=== PATIENT | female | born 1940 | race Caucasian/White ===

== ENCOUNTER 2018-01-01 01:35 | Emergency (ER) | payer MEDICARE, OTHER ==
[~2018-01-01] VITALS: Ht 154.9 cm; Wt 90.0 kg
[2018-01-01 01:47] VITALS: BP 110/58; PULSE 80; RESP 18; TEMP 97.4; O2SAT 100
[2018-01-01] MEDS ORDERED: FURO20TA PO (01:50)
[2018-01-01] MEDS ORDERED: APIX5TAB PO (01:50)
[2018-01-01] MEDS ORDERED: METO25TA3 PO (01:50)
--- NOTE | 2018-01-01 02:15 | PD ---
HPI . Head injury Chief Complaint: Fall Time Seen by Provider: 01:48 Travel History International Travel<30 days: No Contact w/Intl Traveler<30days: No Traveled to known affect area: No History of Present Illness HPI This patient presents to us by [facility] following a fall at home. She is here visiting from [place]. She she is on Eliquis for atrial fibrillation. There is no reported loss of consciousness. She did strike her head. She denies any other injuries. The injury occurred just prior to arrival. She reports no pain. An exacerbating factor was the use of alcohol tonight. PFS Past Medical History Atrial Fibrillation: Yes Congestive Heart Failure: Yes Hypertension: Yes Past Surgical History Abdominal Surgery: Yes (GASTRIC BYPASS) Cholecystectomy: Yes Hysterectomy: Yes Social History Alcohol Use: Yes (OCC) Tobacco Use: No Substance Use: No Allergies-Medications (Allergen,Severity, Reaction): Coded Allergies: codeine (Verified Allergy, Severe, Cramping, 01/01/18) Reported Meds & Prescriptions Reported Meds & Active Scripts Active Reported Metoprolol Tartrate 25 Mg Tab 25 Mg PO BID Furosemide 20 Mg Tab 20 Mg PO DAILY Eliquis (Apixaban) 5 Mg Tab 5 Mg PO BID Review of Systems Except as stated in HPI: all other systems reviewed are Neg Physical Exam Narrative GENERAL: Awake and alert and in no acute distress. SKIN: Warm and dry. HEAD: Normocephalic. She has a hematoma on the right forehead near the right eye. EYES: Pupils are equal. Extraocular movements are intact. NECK: Immobilized with cervical collar. MUSCULOSKELETAL: Atraumatic. NEUROLOGICAL: A and O 3. Cranial nerves are intact. No peripheral motor deficits noted. PSYCHIATRIC: Appropriate mood and affect. Data Data Last Documented VS Vital Signs Date Time Temp Pulse Resp B/P (MAP) Pulse Ox O2 Delivery O2 Flow Rate FiO2 01/01/18 01:47 97.4 80 18 110/58 (75) 100 Room Air Orders Orders Ct Brain W/O Iv Contrast(Rout) (01/01/18 01:56) Ct Cerv Spine W/O Contrast (01/01/18 01:56) Chest, Single Ap (01/01/18 ) Pelvis, Ap Only (Routine) (01/01/18 ) MDM Medical Decision Making Medical Screen Exam Complete: Yes Emergency Medical Condition: Yes Differential Diagnosis My differential diagnosis of head trauma includes but is not limited to scalp contusion, concussion, intracerebral hemorrhage. Narrative Course This patient presents to us following a fall at home with a blow to her head. She is on Eliquis. There was no loss of consciousness. She has no signs or symptoms of head injury at this time such as dizziness, blurred vision, nausea, altered mental status. CT C-spine>>Mild degenerative changes as described above. There is no evidence of acute fracture. CT head>>No evidence of acute intracranial pathology. No masses are identified. The patient will be discharged home. Diagnosis Primary Impression: Scalp contusion Qualified Codes: S00.03XA - Contusion of scalp, initial encounter Patient Instructions: General Instructions, Scalp Contusion in Adults (ED) Disposition: 01 DISCHARGE HOME Condition: Stable Renetta Ramos MD Jan 01, 2018 02:15
--- NOTE | 2018-01-01 03:13 | RADRPT ---
EXAM DATE/TIME: 01/01/2018 02:44 [facility] COMPARISON: No previous studies available for comparison. INDICATIONS : Trauma. Fall. Hematoma right forehead. RADIATION DOSE: 32.66 CTDIvol (mGy) MEDICAL HISTORY : Cardiovascular disease. Hypertension. SURGICAL HISTORY : CABG Cholecystectomy.Hysterectomy. ENCOUNTER: Initial ACUITY: 1 day PAIN SCALE: 0/10 LOCATION: neck TECHNIQUE: Multiple contiguous axial images were obtained of the head. Using automated exposure control and adj ustment of the mA and/or kV according to patient size, radiation dose was kept as low as reasonably a chievable to obtain optimal diagnostic quality images. DICOM format image data is available electro nically for review and comparison. FINDINGS: CEREBRUM: The ventricles are normal for age. No evidence of midline shift, mass lesion, hemorrhage or acute in farction. No extra-axial fluid collections are seen. POSTERIOR FOSSA: The cerebellum and brainstem are intact. The 4th ventricle is midline. The cerebellopontine angle i s unremarkable. EXTRACRANIAL: The visualized portion of the orbits is intact. SKULL: The calvaria is intact. No evidence of skull fracture. Scalp hematoma is present in the right fronta l region CONCLUSION: 1. No evidence of acute intracranial pathology. No masses are identified. Pérez Tapia MD on January 01, 2018 at 3:11 Board Certified Radiologist. This report was verified electronically.
--- NOTE | 2018-01-01 03:16 | RADRPT ---
EXAM DATE/TIME: 01/01/2018 02:44 [facility] COMPARISON: No previous studies available for comparison. INDICATIONS : Trauma. Fall. RADIATION DOSE: 17.89 CTDIvol (mGy) MEDICAL HISTORY : Cardiovascular disease. Hypertension. SURGICAL HISTORY : CABG Cholecystectomy.Hysterectomy. ENCOUNTER: Initial ACUITY: 1 day PAIN SCALE: 0/10 LOCATION: neck TECHNIQUE: Volumetric scanning of the cervical spine was performed. Multiplanar reconstructions in the sagittal, coronal and oblique axial planes were performed. Using automated exposure control and adjustment o f the mA and/or kV according to patient size, radiation dose was kept as low as reasonably achievable to obtain optimal diagnostic quality images. DICOM format image data is available electronically f or review and comparison. FINDINGS: Sagittal images demonstrate normal vertebral body alignment and curvature. The odontoid is intact. Th e occipital condyles and lateral masses of C1 are intact. Axial images were performed from C2-C3 to C7-T1. There is degenerative disc disease with disc space narrowing and marginal osteophyte formatio n at C5-C6. C2-C3: No significant abnormalities identified. C3-C4: No significant abnormalities identified. C4-C5: No significant abnormalities identified. C5-C6: There is osteophytic ridging along the posterior aspect of vertebral body. There is no significant sp inal canal stenosis. The neural foramina are clear bilaterally. C6-C7: There is no evidence of disc protrusion or spinal canal stenosis. There is moderate facet arthritis o n the left. The neural foramina are clear bilaterally. C7-T1: There is no evidence of disc protrusion or spinal canal stenosis. There is mild facet arthritis bilat erally. CONCLUSION: 1. Mild degenerative changes as described above. There is no evidence of acute fracture. Pérez Tapia MD on January 01, 2018 at 3:12 Board Certified Radiologist. This report was verified electronically.
--- NOTE | 2018-01-01 04:44 | RADRPT ---
EXAM DATE/TIME: 01/01/2018 03:57 [facility] COMPARISON: No previous studies available for comparison. INDICATIONS : Trauma. Fall. MEDICAL HISTORY : Cardiovascular disease. Hypertension SURGICAL HISTORY : CABG Cholecystectomy.Hysterectomy ENCOUNTER: Initial ACUITY: 1 day PAIN SCORE: 4/10 LOCATION: Bilateral pelvis FINDINGS: A single frontal view of the pelvis demonstrates no evidence of fracture. The bony pelvic ring is in tact. An inferior vena cava filter is in place. Bony mineralization is normal. The soft tissues are intact. CONCLUSION: 1. There is no evidence of acute fracture. Pérez Tapia MD on January 01, 2018 at 4:42 Board Certified Radiologist. This report was verified electronically.
--- NOTE | 2018-01-01 05:13 | RADRPT ---
EXAM DATE/TIME: 01/01/2018 03:56 [facility] COMPARISON: No previous studies available for comparison. INDICATIONS : Trauma. Fall. MEDICAL HISTORY : Cardiovascular disease. Hypertension SURGICAL HISTORY : CABG Cholecystectomy.Hysterectomy ENCOUNTER: Initial ACUITY: 1 day PAIN SCORE: 5/10 LOCATION: Bilateral chest FINDINGS: The cardiac silhouette is enlarged in transverse diameter. The lungs are free of acute parenchymal op acity. No effusions are identified. Osseous structures are intact. CONCLUSION: Cardiomegaly. No acute cardiopulmonary disease. Pérez Tapia MD on January 01, 2018 at 5:11 Board Certified Radiologist. This report was verified electronically.
== END 2018-01-01 05:09 | disposition home or self-care (01) ==
LOC: NEPE 01:35
DX: S00.03XA Contusion of scalp, initial encounter (principal); S00.83XA Contusion of other part of head, initial encounter; M50.30 Other cervical disc degeneration, unspecified cervical region; I48.91 Unspecified atrial fibrillation; I11.0 Hypertensive heart disease with heart failure; I50.9 Heart failure, unspecified; W19.XXXA Unspecified fall, initial encounter; Y92.009 Unspecified place in unspecified non-institutional (private) residence as the place of occurrence of the external cause; Z79.899 Other long term (current) drug therapy
CPT/HCPCS: 70450; 71045; 72125; 72170